=== PATIENT | male | born 1955 | race Caucasian/White ===

== ENCOUNTER 2017-10-14 04:35 | Emergency (ER) | payer OTHER ==
[~2017-10-14] VITALS: Ht 22.9 cm; Wt 83.5 kg
[2017-10-14] MEDS ORDERED: DOXY-179 PO (04:41)
[2017-10-14] MEDS ORDERED: BENZ100C4 PO (04:42)
--- NOTE | 2017-10-14 04:44 | ER Report ---
History and Physical Time Seen By MD: 04:39 HPI/ROS CHIEF COMPLAINT: Dyspnea, flu symptoms HISTORY OF PRESENT ILLNESS: 62-year-old male presents to the ER with difficulty sleeping secondary to difficulty breathing. Patient has been sick for approximately 10 days with bronchitis. He was seen at urgent care. Proximal 5 days ago. Rapid influenza was negative. A chest x-ray was clear. He was started on doxycycline and benzoate for symptom reduction. Patient states he felt better for the 1st day after the visit to urgent care where he received a nebulizer treatment which improved his breathing. He now has more difficulty breathing. He states he coughed up a lot of phlegm and mucus. It has slowed down now. He notes no leg swelling or calf pain. He denies chest pain. He notes he's been having intermittent fevers and chills. He denies sweats. Patient denies nausea or vomiting. REVIEW OF SYSTEMS: Respiratory: As above Cardiovascular: No chest pain, no palpitations. Gastrointestinal: No vomiting, no abdominal pain. Musculoskeletal: No back pain. Allergies: Coded Allergies: No Known Drug Allergies (Unverified , 10/14/17) Home Meds Active Scripts Hydrocodone Bit/Acetaminophen (NORCO 5-325 TABLET) 1 Each Tablet, 1 EACH PO Q4H Y for cough or pain. Suppression, #12 TAB Prov:JAZMIN PORTILLO DO 10/14/17 Promethazine Hcl (PROMETHAZINE HCL) 25 Mg Tablet, 25 MG PO Q4H Y for cough or nausea suppression, #14 TAB Prov:JAZMIN PORTILLO DO 10/14/17 Reported Medications Benzonatate 100 Mg Cap (TESSALON PERLE 100 MG CAP) 100 Mg Capsule, 200 MG PO TID , #15 CAP 10/14/17 Doxycycline Hyclate (DOXYCYCLINE HYCLATE) 100 Mg Tablet, 100 MG PO BID 10/14/17 Discontinued Reported Medications [None] No Conflict Check 04/14/12 Past Medical/Surgical History History of back surgery Reviewed Nurses Notes: Yes Old Medical Records Reviewed: Yes Constitutional Vital Sign - Last 24 Hours 10/14/17 10/14/17 10/14/17 10/14/17 04:39 04:42 04:50 04:58 Temp 98.2 Pulse 70 61 60 Resp 16 18 B/P (MAP) 122/69 (86) 122/69 Pulse Ox 95 96 O2 Delivery Room Air 10/14/17 10/14/17 10/14/17 10/14/17 04:58 05:00 05:03 05:05 Pulse 72 75 Resp 18 B/P (MAP) 108/72 (84) Pulse Ox 92 93 O2 Delivery Room Air 10/14/17 10/14/17 10/14/17 10/14/17 05:20 05:30 05:35 05:50 Pulse 73 64 B/P (MAP) 116/70 (85) Pulse Ox 85 81 89 10/14/17 10/14/17 10/14/17 10/14/17 05:55 05:55 06:00 06:10 Pulse 65 55 B/P (MAP) 105/72 (83) Pulse Ox 93 92 O2 Flow Rate 2.0 10/14/17 10/14/17 06:25 06:30 Pulse 73 B/P (MAP) 111/79 (90) Pulse Ox 93 94 Physical Exam Vital signs stable, afebrile, pulse ox normal General Appearance: The patient is alert, has no immediate need for airway protection and no current signs of toxicity. Slightly pale appearing, skin warm and dry HEENT: Pupils equal and round no injection. Oropharynx without redness or exudate, mucous. Membranes are moist Respiratory: Chest is non tender, lungs are clear to auscultation. Faint except [place], wheezing, no Rales Cardiac: regular rate and rhythm Gastrointestinal: Abdomen is soft and non tender, no masses, bowel sounds normal. Musculoskeletal: Neck: Neck is supple and non tender. Extremities have full range of motion and are non tender. No edema, no calf tenderness Skin: No rashes or lesions. DIFFERENTIAL DIAGNOSIS: After history and physical exam differential diagnosis was considered for shortness of breath including but not limited to pulmonary infectious process, COPD, asthma, pulmonary embolus, influenza, bronchitis, pneumonia, dehydration and congestive heart failure. Medical Decision Making Data Points Result Diagram: 10/14/17 0446 10/14/17 0446 Laboratory Hematology Test 10/14/17 04:46 Red Blood Count 5.28 M/uL (4.00-5.60) Mean Corpuscular Volume 85.7 fL (80.0-96.0) Mean Corpuscular Hemoglobin 29.5 pg (26.0-33.0) Mean Corpuscular Hemoglobin Concent 34.4 g/dL (32.0-36.0) Red Cell Distribution Width 14.4 % (11.5-14.5) Mean Platelet Volume 7.2 fL (7.2-11.1) Neutrophils (%) (Auto) 63.1 % (39.4-72.5) Lymphocytes (%) (Auto) 23.5 % (17.6-49.6) Monocytes (%) (Auto) 12.5 % (4.1-12.4) Eosinophils (%) (Auto) 0.3 % (0.4-6.7) Basophils (%) (Auto) 0.6 % (0.3-1.4) Nucleated RBC Relative Count (auto) 0.2 /100WBC Neutrophils # (Auto) 2.3 K/uL (2.0-7.4) Lymphocytes # (Auto) 0.8 K/uL (1.3-3.6) Monocytes # (Auto) 0.5 K/uL (0.3-1.0) Eosinophils # (Auto) 0.0 K/uL (0.0-0.5) Basophils # (Auto) 0.0 K/uL (0.0-0.1) Nucleated RBC Absolute Count (auto) 0.01 K/uL D-Dimer Quantitative (PE/DVT) 0.60 ug/ml (0-0.50) Sodium Level 135 mmol/L (137-145) Potassium Level 3.7 mmol/L (3.5-5.0) Chloride Level 103 mmol/L (98-107) Carbon Dioxide Level 22 mmol/L (22-30) Blood Urea Nitrogen 9 mg/dl (9-21) Creatinine 0.80 mg/dl (0.66-1.25) Glomerular Filtration Rate Calc > 60.0 Random Glucose 97 mg/dl (75-110) Calcium Level 8.7 mg/dl (8.4-10.2) Total Bilirubin 0.7 mg/dl (0.2-1.3) Aspartate Amino Transf (AST/SGOT) 43 U/L (0-35) Alanine Aminotransferase (ALT/SGPT) 55 U/L (0-56) Alkaline Phosphatase 76 U/L (0-126) Troponin I < 0.012 ng/ml B-Type Natriuretic Peptide 31 pg/ml (0-100) Total Protein 7.4 gm/dl (6.3-8.2) Albumin 3.8 g/dl (3.5-5.0) Influenza Type A Antigen Negative (NEGATIVE) Influenza Type B Antigen Positive (NEGATIVE) Chemistry Test 10/14/17 04:46 White Blood Count 3.6 k/uL (4.5-11.0) Red Blood Count 5.28 M/uL (4.00-5.60) Hemoglobin 15.6 g/dL (14.0-18.0) Hematocrit 45.3 % (42.0-52.0) Mean Corpuscular Volume 85.7 fL (80.0-96.0) Mean Corpuscular Hemoglobin 29.5 pg (26.0-33.0) Mean Corpuscular Hemoglobin Concent 34.4 g/dL (32.0-36.0) Red Cell Distribution Width 14.4 % (11.5-14.5) Platelet Count 134 K/uL (150-450) Mean Platelet Volume 7.2 fL (7.2-11.1) Neutrophils (%) (Auto) 63.1 % (39.4-72.5) Lymphocytes (%) (Auto) 23.5 % (17.6-49.6) Monocytes (%) (Auto) 12.5 % (4.1-12.4) Eosinophils (%) (Auto) 0.3 % (0.4-6.7) Basophils (%) (Auto) 0.6 % (0.3-1.4) Nucleated RBC Relative Count (auto) 0.2 /100WBC Neutrophils # (Auto) 2.3 K/uL (2.0-7.4) Lymphocytes # (Auto) 0.8 K/uL (1.3-3.6) Monocytes # (Auto) 0.5 K/uL (0.3-1.0) Eosinophils # (Auto) 0.0 K/uL (0.0-0.5) Basophils # (Auto) 0.0 K/uL (0.0-0.1) Nucleated RBC Absolute Count (auto) 0.01 K/uL D-Dimer Quantitative (PE/DVT) 0.60 ug/ml (0-0.50) Glomerular Filtration Rate Calc > 60.0 Calcium Level 8.7 mg/dl (8.4-10.2) Total Bilirubin 0.7 mg/dl (0.2-1.3) Aspartate Amino Transf (AST/SGOT) 43 U/L (0-35) Alanine Aminotransferase (ALT/SGPT) 55 U/L (0-56) Alkaline Phosphatase 76 U/L (0-126) Troponin I < 0.012 ng/ml B-Type Natriuretic Peptide 31 pg/ml (0-100) Total Protein 7.4 gm/dl (6.3-8.2) Albumin 3.8 g/dl (3.5-5.0) Influenza Type A Antigen Negative (NEGATIVE) Influenza Type B Antigen Positive (NEGATIVE) Coagulation Test 10/14/17 04:46 D-Dimer Quantitative (PE/DVT) 0.60 ug/ml EKG/Imaging EKG Interpretation 12 lead EK Rhythm: normal sinus rhythm at 58 bpm [place]: normal QRS: normal ST segments: normal, no evidence of ischemia or dysrhythmia, no old EKGs for comparison Imaging X-ray: Two-view chest x-ray was obtained. I viewed the images myself on the PACS system. My interpretation of the images is: No infiltrate, no effusion, normal mediastinum. The radiologist interpretation had no clinically significant variation from this interpretation. Results: CT scan of the CTA pulmonary angiogram was obtained. The results of the study are CT PE DATE: 10/14/2017 6:03 AM INDICATION: Elevated d-dimer, dyspnea. COMPARISON: Same-day radiographs. TECHNIQUE: Axial CT angiogram was obtained through the chest with intravenous contrast. Sagittal and coronal MPR and MIP coronal reformations were also generated. 75 mL isovue 370. One of the following dose optimization techniques was utilized in the performance of this exam: Automated exposure control; adjustment of the mA and/or kV according to the patient's size; or use of an iterative reconstruction technique. Specific details can be referenced in the facility's radiology CT exam operational policy. FINDINGS: Thyroid / Thoracic Inlet: No visualized thyroid nodule or supraclavicular lymphadenopathy. Pulmonary Arteries: Normal. Heart and Aorta: Normal-size heart with no pericardial effusion. Mild coronary artery calcification. Nonaneurysmal thoracic aorta. Mediastinum and Jamee: There are mildly enlarged mediastinal and bilateral hilar lymph nodes. An example right hilar lymph node on image 160 series 7 measures 17 x 13 mm. Lungs and Pleura: No pleural effusion or pneumothorax. Bilateral small noncalcified pulmonary nodules including 2 4 mm nodules in the right middle lobe on image 165 series 7 and a 5 mm nodule in the left lower lobe on image 193 as examples. Calcified granuloma in the right lower lobe. Mild atelectasis. Breast and Axilla: No axillary lymphadenopathy. Mild gynecomastia. Upper Abdomen: No visualized acute abnormality. Liver parenchyma is diffusely hypoattenuating. Small hiatal hernia. Bones and Soft Tissues: No suspicious osseous or soft tissue abnormality. IMPRESSION: 1. No pulmonary embolism. 2. Mildly enlarged mediastinum and hilar lymph nodes are likely reactive. Consider 3-6 month follow-up if indicated. 3. Mild coronary artery calcification. 4. Suspected hepatic steatosis. 5. Small hiatal hernia. 6. Bilateral pulmonary nodules measuring up to 5 mm in diameter. Current Fleischner Society recommendations for multiple pulmonary nodules less than 6 mm (average of long and short axis): - Low risk: No routine follow-up. - High risk: Optional noncontrast CT at 12 months. Use most suspicious nodule as guide to management. Layne H, Betty Ramirez, Neela J, et al. Guidelines for management of small pulmonary nodules detected on CT images: from the Fleischner society 2017. The study was read by the radiologist. I viewed the images myself on the PACS system. ED Course/Re-evaluation Clinical Indication for ER IV: IV Access ED Course Patient was admitted to an examination room. H&P was done. The differential diagnoses was considered. Patient with a variety of symptoms. He's been ill with what sounds like flu symptoms for several weeks. He's been unable to sleep for the last 2 nights due to shortness of breath and body aches. Patient' s treated with IV fluid hydration, Zofran, albuterol nebulizer treatments. Diagnostic studies are sent off. His influenza B comes back positive. His chest x-ray shows no infiltrate. Unfortunately, his d-dimer is elevated and a CT angiogram is performed. There is no evidence of pulmonary embolism. There are mediastinal lymph nodes swollen consistent with reactive notes. Patient's discharged home with hydrocodone for pain relief and cough suppression. He is given Phenergan for nausea control and to dry up the cough that he may sleep and recover. He's advised to continue on ibuprofen 600-800 milligrams 3 times daily. Patient was advised to discontinue the doxycycline prescribed by urgent care. Patient advised to follow-up with primary care if unimproved in 3-5 days. Decision to Disposition Date: Oct 14, 2017 Decision to Disposition Time: 05:50 Depart Departure Latest Vital Signs Vital Signs Date Time Temp Pulse Resp B/P (MAP) Pulse Ox O2 Delivery O2 Flow Rate FiO2 10/14/17 06:30 73 111/79 (90) 94 10/14/17 05:55 2.0 10/14/17 05:03 18 10/14/17 04:58 Room Air 10/14/17 04:42 98.2 Impression: Primary Impression: Influenza B Additional Impressions: Leukopenia Mediastinal lymphadenopathy Condition: Improved Disposition: HOME OR SELF-CARE Referrals: KERRI LONDON DO New Scripts Hydrocodone Bit/Acetaminophen (NORCO 5-325 TABLET) 1 Each Tablet 1 EACH PO Q4H Y for cough or pain. Suppression, #12 TAB Prov: JAZMIN PORTILLO DO 10/14/17 Promethazine Hcl (PROMETHAZINE HCL) 25 Mg Tablet 25 MG PO Q4H Y for cough or nausea suppression, #14 TAB Prov: JAZMIN PORTILLO DO 10/14/17 Patient Instructions: Influenza (ED) Additional Instructions: Take ibuprofen 200 mg 3 tablets 3 times a day with food Drink plenty of fluids Use medication to suppress cough and nausea as necessary Follow-up with primary care for reevaluation in several months. Problem Qualifiers Additional Impressions: Leukopenia Leukopenia type: unspecified Qualified Codes: D72.819 - Decreased white blood cell count, unspecified JAZMIN PORTILLO DO Oct 14, 2017 04:44
[2017-10-14] MEDS ORDERED: ALBUTEROL/IPRATROPIUM 3 ML NEB NEB ONE (04:45)
[2017-10-14 05:05] LABS: PLATELET COUNT, AUTOMATED 134 K/uL (150-450)
--- NOTE | 2017-10-14 05:07 | EKG ---
FAC[place]: [facility] [place]IENT NAME: MAURICE BOLANOS : [id number] MR: [id number] V: [id number] EXAM DATE: ORDERING PHYSICIAN: JAZMIN PORTILLO TECHNOLOGIST: RADHA Zamarripa Reason : SOB Blood Pressure : / mmHG Vent. Rate : 058 BPM Atrial Rate : 058 BPM P-R Int : 166 ms QRS Dur : 086 ms QT Int : 420 ms P-R-T Axes : 029 063 031 degrees QTc Int : 412 ms Sinus bradycardia No acute appearing findings Confirmed by GERSON BEATTY ([id number]) on 10/14/2017 6:18:39 AM Referred By: BANDAR Confirmed By:GERSON BEATTY
--- NOTE | 2017-10-14 05:27 | RADIOLOGY IMAGING REPORT ---
FACILITY: [facility] - [place] PATIENT NAME: Yoni Hylton : 1955 MR: [id number] V: [id number] EXAM DATE: ORDERING PHYSICIAN: JAZMIN PORTILLO TECHNOLOGIST: Location: [facility] [place] Patient: Yoni Hylton : 1955 Visit/Account:[id number] Date of Sevice: 10/14/2017 CHEST PA AND LATERAL 10/14/2017 5:13 AM. INDICATION: Respiratory distress. COMPARISON: None. FINDINGS: Lungs are well-expanded. The lungs are clear. No pneumothorax or pleural effusion. Pulmo nary vasculature is unremarkable. Heart size is normal. IMPRESSION: No acute abnormality. Report Dictated By: Saad Vega MD at 10/14/2017 5:21 AM Report E-Signed By: Saad Vega MD at 10/14/2017 5:22 AM WSN:[id number]
[2017-10-14] MEDS ORDERED: NS 0.9% 50 ML VIAL 100 ML ONE (05:34)
[2017-10-14] MEDS ORDERED: IOPAMIDOL 76% 75 ML INFUS BTL 75 ML ONE (05:34)
[2017-10-14] MEDS ORDERED: PROM-110 PO (06:25)
[2017-10-14] MEDS ORDERED: HYDR-4309 PO (06:25)
--- NOTE | 2017-10-14 06:26 | RADIOLOGY IMAGING REPORT ---
FACILITY: [facility] PATIENT NAME: Yoni Hylton : 1955 MR: [id number] V: [id number] EXAM DATE: ORDERING PHYSICIAN: JAZMIN PORTILLO TECHNOLOGIST: Location: [facility] - [place] Patient: Yoni Hylton : 1955 Visit/Account:[id number] Date of Sevice: 10/14/2017 CT PE DATE: 10/14/2017 6:03 AM INDICATION: Elevated d-dimer, dyspnea. COMPARISON: Same-day radiographs. TECHNIQUE: Axial CT angiogram was obtained through the chest with intravenous contrast. Sagittal an d coronal MPR and MIP coronal reformations were also generated. 75 mL isovue 370. One of the follow ing dose optimization techniques was utilized in the performance of this exam: Automated exposure con trol; adjustment of the mA and/or kV according to the patient's size; or use of an iterative reconst ruction technique. Specific details can be referenced in the facility's radiology CT exam operationa l policy. FINDINGS: Thyroid / Thoracic Inlet: No visualized thyroid nodule or supraclavicular lymphadenopathy. Pulmonary Arteries: Normal. Heart and Aorta: Normal-size heart with no pericardial effusion. Mild coronary artery calcification . Nonaneurysmal thoracic aorta. Mediastinum and Jamee: There are mildly enlarged mediastinal and bilateral hilar lymph nodes. An exam ple right hilar lymph node on image 160 series 7 measures 17 x 13 mm. Lungs and Pleura: No pleural effusion or pneumothorax. Bilateral small noncalcified pulmonary nodul es including 2 4 mm nodules in the right middle lobe on image 165 series 7 and a 5 mm nodule in the l eft lower lobe on image 193 as examples. Calcified granuloma in the right lower lobe. Mild atelecta sis. Breast and Axilla: No axillary lymphadenopathy. Mild gynecomastia. Upper Abdomen: No visualized acute abnormality. Liver parenchyma is diffusely hypoattenuating. Sma ll hiatal hernia. Bones and Soft Tissues: No suspicious osseous or soft tissue abnormality. IMPRESSION: 1. No pulmonary embolism. 2. Mildly enlarged mediastinum and hilar lymph nodes are likely reactive. Consider 3-6 month follow -up if indicated. 3. Mild coronary artery calcification. 4. Suspected hepatic steatosis. 5. Small hiatal hernia. 6. Bilateral pulmonary nodules measuring up to 5 mm in diameter. Current Fleischner Society recommen dations for multiple pulmonary nodules less than 6 mm (average of long and short axis): - Low risk: No routine follow-up. - High risk: Optional noncontrast CT at 12 months. Use most suspicious nodule as guide to management. Layne H, Betty Ramirez, Neela J, et al. Guidelines for management of small pulmonary nodules detected on CT images: from the Fleischner society 2017. Report Dictated By: Saad Vega MD at 10/14/2017 6:02 AM Report E-Signed By: Saad Vega MD at 10/14/2017 6:20 AM WSN:[id number]
[2017-10-14 06:30] VITALS: BP 111/79
[2017-10-14] MEDS ORDERED: PROMETHAZINE HCL 25 MG TAB TH 2 TAB/BOTTLE PO ONE (06:35)
[2017-10-14] MEDS ORDERED: ACET/HYDROC 5/325MG TH ER ONLY 2 TAB/BOTTLE PO ONE (06:35)
== END 2017-10-14 06:41 | disposition home or self-care (01) ==
LOC: ER 05:12
DX: J11.1 Influenza due to unidentified influenza virus with other respiratory manifestations (principal); D72.819 Decreased white blood cell count, unspecified
CPT/HCPCS: 71046; 71275; 83880; 84484; 85025; 85379; 87502; 93005; 94640; 99284; J7050; J7620; Q9967; 82040; 82247; 82310; 82374; 82435; 82565; 82947; 84075; 84132; 84155; 84295; 84450; 84460; 84520

== ENCOUNTER → 2018-03-06 | Outpatient (CLI) | payer OTHER ==
[~2018-03-06] MED LIST: BENZ100C4 PO; DOXY-179 PO; HYDR-4309 PO; PROM-110 PO
--- NOTE | 2018-03-06 09:05 | RADIOLOGY IMAGING REPORT ---
FACILITY: [facility] PATIENT NAME: Yoni Hylton : 1955 MR: [id number] V: [id number] EXAM DATE: ORDERING PHYSICIAN: KERRI LONDON TECHNOLOGIST: Location: [facility] Patient: Yoni Hylton : 1955 Visit/Account:[id number] Date of Sevice: 03/06/2018 CHEST W/O CONTRAST Indication: Pulmonary nodule Comparison: CT chest 10/14/2017 TECHNIQUE: Noncontrast CT thoracic inlet through the adrenal glands obtained. One of the following d ose optimization techniques was utilized in the performance of this exam: automated exposure control; adjustment of the mA and/or kV according to the patient's size; or use of an iterative reconstructio n technique. Specific details can be referenced in the facility's radiology CT exam operational miguel cy. FINDINGS: Lungs: There is a 3 mm nodule adjacent to the pleura in the right middle lobe (image 180/infusion 21 ), unchanged from the prior study. There is a nodule in the left lower lobe, adjacent to the diaphrag m 4 mm, unchanged (image 232/221). Remaining lung parenchyma is clear. Mediastinum / shayan: Heart size is normal. Great vessels are unremarkable. Musculoskeletal / Body wall: Bones are unremarkable. Lower neck: Normal. Upper abdomen: Diffuse decreased attenuation throughout the liver is seen consistent with fatty infi ltration. IMPRESSION: 1. Previously seen pulmonary nodules have either resolved, or are unchanged in size compared to 015. Recommend follow-up per Fleischner Society criteria. Fleischner Society Criteria for pulmonary nodules less than 6 mm in size, low risk patient is no foll ow-up needed, high-risk patient is optional CT chest without contrast 12 months. High-risk patients are patient to have history of tobacco use, family history of lung cancer. Report Dictated By: Al Fiore at 03/06/2018 8:41 AM Report E-Signed By: Al Fiore at 03/06/2018 8:59 AM WSN:[id number]
== END ==
LOC: CT 00:31
PROVIDERS: ATTEND Family Medicine
DX: K76.0 Fatty (change of) liver, not elsewhere classified (principal); R91.8 Other nonspecific abnormal finding of lung field
CPT/HCPCS: 71250

== ENCOUNTER → 2018-04-08 | Outpatient (CLI) | payer OTHER | LOC: RESP 06:48 | PROVIDERS: ATTEND Family Medicine | DX: R94.39 Abnormal result of other cardiovascular function study (principal) | CPT/HCPCS: 93017 ==